=== PATIENT | female | born 1985 | race Caucasian/White ===

== ENCOUNTER 2016-09-01 07:03 | Emergency (ER) | payer MEDICARE, MEDICAID ==
[~2016-09-01 07:03] MED LIST: CARBATROL300 MG PO; EFFER-K 20 MEQ20 ME1 PO; GLUCOPHAGE1000 M1 PO; KLONOPIN0.5 M1 PO; NORCO 5-325 TA1 EACH PO; SYNTHROID50 MCG PO; TOPAMAX50 M3 PO; VIMPAT200 M1 PO; ZOLOFT100 M1 PO; ZYRTEC10 M1 PO
[2016-09-01] MEDS ORDERED: SYNTHROID50 MC1 PO (07:22)
[2016-09-01] MEDS ORDERED: KLONOPIN0.5 M1 PO (07:22)
[2016-09-01] MEDS ORDERED: ZONEGRAN100 M2 PO (07:23)
[2016-09-01] MEDS ORDERED: ATIVAN0.5 M1 PO (07:25)
[2016-09-01] MEDS ORDERED: LIPITOR40 M1 PO (07:25)
[2016-12-04] MEDS ORDERED: ATIVAN0.5 M1 PO (19:10)
== END 2016-09-01 10:38 ==
LOC: EDMED 07:03
PROC: 2W3SX1Z Immobilization of Right Foot using Splint (ICD-10-PCS; principal; 2016-09-01)
DX: G40.909 Epilepsy, unspecified, not intractable, without status epilepticus (principal); S93.401A Sprain of unspecified ligament of right ankle, initial encounter; M54.2 Cervicalgia; E11.9 Type 2 diabetes mellitus without complications; Z79.899 Other long term (current) drug therapy; X58.XXXA Exposure to other specified factors, initial encounter

== ENCOUNTER 2016-11-10 21:47 | Emergency (ER) | payer MEDICARE, MEDICAID ==
[~2016-11-10 21:47] MED LIST changes: +ATIVAN0.5 M1 PO; +LIPITOR40 M1 PO; +SYNTHROID50 MC1 PO; +ZONEGRAN100 M2 PO
[2016-11-10] MEDS ORDERED: LEVOTHYROXINE50 MC3 PO (22:08)
[2016-11-10] MEDS ORDERED: KLONOPIN1 M1 PO ×2 (22:08→22:10)
[2016-11-10] MEDS ORDERED: KLONOPIN0.5 M1 PO (22:10)
[2016-11-10] MEDS ORDERED: XANAX0.5 M1 PO (22:11)
[2016-11-10 22:40] LABS: BASO % 0.2 % (0-2); EOS % 0.9 % (0-7); EOSINOPHIL ABSOLUTE COUNT 0.1 tho/cmm (0.0-0.7); HCT-HEMATOCRIT 38.8 % (34.0-49.0); HGB-HEMOGLOBIN 13.1 gm/dl (12.0-15.5); IMMATURE GRANULOCYTES ABSOLUTE 0.01 tho/cmm (0-0.03); IMMATURE GRANULOCYTES PERCENT 0.1 % (0-0.3); LYMPH % 29.2 % (20-45); LYMPH ABSOLUTE COUNT 2.5 tho/cmm (0.8-4.5); MCH (MEAN CORPUSCULAR HGB) 29.8 pg (28.0-32.0); MCHC MEAN CORPUSCULAR HGB CONC 33.8 % (32.0-36.0); MCV (MEAN CELL VOLUME) 88.4 fl (82.0-96.0); MEAN PLATELET VOLUME 9.3 cmc (9.4-12.4); MONO % 6.6 % (0-12); MONOCYTE ABSOLUTE COUNT 0.6 tho/cmm (0.0-1.2); NEUTROPHIL ABSOLUTE COUNT 5.3 tho/cmm (1.6-8.0); NEUTROPHIL-AUTOMATED 5.3 tho/cmm (1.6-8.0); PLATELET COUNT 243 tho/cmm (150-450); RED BLOOD COUNT 4.39 mil/cmm (4.00-5.20); RED CELL DISTRIBUTION WIDTH 13.9 % (12.4-16.4); WHITE BLOOD COUNT 8.4 tho/cmm (4.0-10.0)
[2016-11-10 22:47] LABS: PREGNANCY-SERUM NEGATIVE (NEGATIVE)
[2016-11-10 22:54] LABS: ALB/GLOB RATIO 0.9 (0.8-2.0); ALBUMIN 3.4 g/dl (3.5-5.0); ALKALINE PHOSPHATASE 97 U/L (33-138); ALT/SGPT 22 U/L (12-78); ANION GAP 14 mmol/L (0-20); AST/SGOT 17 U/L (10-40); BILIRUBIN,TOTAL 0.3 mg/dl (0-1.5); BLOOD UREA NITROGEN 11 mg/dl (6-24); CALCIUM 8.9 mg/dl (8.5-10.5); CARBON DIOXIDE-VENOUS 22 mmol/L (22-32); CHLORIDE 109 mmol/l (96-110); CREATININE 0.77 mg/dl (0.50-1.10); GLUCOSE 96 mg/dL (70-110); MAGNESIUM 1.7 mg/dl (1.8-2.6); POTASSIUM 3.8 mmol/L (3.7-5.1); SODIUM 141 mmol/L (135-145); eGFR VALUE FOR BLACK >90 mL/Min
[2016-11-11] MEDS ORDERED: VENTOLIN HFA18 G2 PO (00:47)
[2016-11-11] MEDS ORDERED: ZITHROMAX250 M1 PO (00:48)
[2016-12-04] MEDS ORDERED: ATIVAN0.5 M1 PO (19:10)
== END 2016-11-11 01:20 ==
LOC: EDMED 21:47
PROVIDERS: Emergency Medicine
DX: G40.909 Epilepsy, unspecified, not intractable, without status epilepticus (principal); J20.9 Acute bronchitis, unspecified; E11.9 Type 2 diabetes mellitus without complications
CPT/HCPCS: J2405; J3475; J7030